=== PATIENT | male | born 1960 | race Caucasian/White ===

== ENCOUNTER 2023-05-06 16:05 | Inpatient (IN) | payer MEDICARE, OTHER ==
[~2023-05-06] VITALS: Ht 188 cm; Wt 104.8 kg
[2023-05-06] MEDS ORDERED: MAGN400O6 PO (17:02)
[2023-05-06] MEDS ORDERED: MAGN200T9 PO (17:02)
[2023-05-06] MEDS ORDERED: CLON0.5T4 PO (17:02)
[2023-05-06] MEDS ORDERED: SENN8.6T19 PO (17:02)
[2023-05-06] MEDS ORDERED: VITA1TAB37 PO (17:02)
[2023-05-06] MEDS ORDERED: IRBE150T28 PO (17:02)
[2023-05-06] MEDS ORDERED: METO50TA16 PO (17:02)
[2023-05-06] MEDS ORDERED: POLY250017 PO (17:02)
[2023-05-06] MEDS ORDERED: ACET325T53 PO (17:02)
[2023-05-06] MEDS ORDERED: NA P133E RC (17:02)
[2023-05-06] MEDS ORDERED: VALP250C3 PO (17:02)
[2023-05-06] MEDS ORDERED: ATOR10TA PO (17:02)
[2023-05-06] MEDS ORDERED: BISA10SU61 RC (17:02)
[2023-05-06] MEDS ORDERED: SERT100T PO (17:02)
[2023-05-06] MEDS ORDERED: CHOL2000 PO (17:02)
[2023-05-06] MEDS ORDERED: PANT20TA2 PO (17:02)
[2023-05-06] MEDS ORDERED: CETI10TA18 PO (17:02)
[2023-05-06 18:57] LABS: *BILIRUBIN,URIN NEGATIVE (NEGATIVE); *BLOOD, URINE NEGATIVE (NEGATIVE); *CLARITY,URINE SLIGHTLY CLOUDY (CLEAR); *COLOR,URINE YELLOW (YELLOW); *KETONES,URINE NEGATIVE (NEGATIVE); *PROTEIN,URINE NEGATIVE (NEGATIVE); NITRITE, URINE NEGATIVE (NEGATIVE); PH,URINE 7.5 (5.0-8.0); UGLUCOSE NEGATIVE (NEGATIVE)
[2023-05-06 19:09] LABS: *AMPHETAMINE, URINE NEGATIVE (NEGATIVE); *BARBITURATE, URINE NEGATIVE (NEGATIVE); *BENZODIAZEPINE, URINE NEGATIVE (NEGATIVE); *CANNABINOID, URINE NEGATIVE (NEGATIVE); *COCCAINE, URINE NEGATIVE (NEGATIVE); *OPIATE, URINE NEGATIVE (NEGATIVE); *PHENCYCLIDINE SCREEN,URINE NEGATIVE (NEGATIVE); FENTANYL, URINE NEGATIVE (NEGATIVE)
[2023-05-06 19:14] LABS: BASOPHILS # (AUTO) 0.1 K/UL (0.0-0.2); BASOPHILS % (AUTO) 1.7 % (0.0-2.0); EOSINOPHILS # (AUTO) 0.6 K/uL (0.0-0.7); EOSINOPHILS % (AUTO) 9.3 % (0.0-7.0); HEMOGLOBIN 14.2 g/dL (12.5-16.3); LYMPHOCYTES # (AUTO) 1.2 K/uL (0.8-4.8); LYMPHOCYTES % (AUTO) 17.3 % (20.5-51.5); MEAN CORPUSCULAR HEMOGLOBIN 30.9 uug (23.8-33.4); MEAN CORPUSCULAR HGB CONC 34 g/dL (32.5-36.3); MEAN CORPUSCULAR VOLUME 91.4 fL (73.0-96.2); MONOCYTES # (AUTO) 0.7 K/uL (0.1-1.30); MONOCYTES % (AUTO) 10.1 % (0.0-11.0); NEUTROPHILS # (AUTO) 4.2 K/uL (1.8-8.9); NEUTROPHILS % (AUTO) 61.6 % (38.5-71.5); PLATELET COUNT (AUTO) 261 K/uL (152-348); RED CELL DISTRIBUTION WIDTH 14.2 % (12.1-16.2); WHITE BLOOD COUNT (AUTO) 6.8 K/uL (3.6-10.2)
[2023-05-06 19:15] LABS: LEUKOCYTE ESTERASE ,URINE NEGATIVE (NEGATIVE)
[2023-05-06 19:16] LABS: DIFFERENTIAL COMMENT 1
[2023-05-06 19:30] LABS: ACETAMINOPHEN < 2.0 ug/mL (10-30); ALANINE AMINOTRANSFERASE 15 U/L (16-63); ALBUMIN 3.5 g/dL (3.4-5.0); ALKALINE PHOSPHATASE 56 U/L (50-136); ASPARTATE AMINOTRANSFERASE 11 U/L (15-37); BILIRUBIN,DIRECT 0.1 mg/dL (0.0-0.2); BILIRUBIN,TOTAL 0.6 mg/dL (0.2-1.0); CALCIUM 8.9 mg/dL (8.5-10.1); CARBON DIOXIDE 30 mmol/L (21-32); CHLORIDE 104 mmol/L (98-107); ETHANOL < 3 MG/DL (0-10); GLUCOSE 112 mg/dL (74-106); POTASSIUM 4.2 mmol/L (3.5-5.1); SODIUM SERUM 139 mmol/L (136-145); TOTAL PROTEIN, SERUM 7.8 g/dL (6.4-8.2); UREA NITROGEN, BLOOD 19 mg/dL (7-18)
[2023-05-06] MEDS ORDERED: MAGNESIUM HYDROXIDE 30 ML LIQUID UDC PO PRN (21:45)
[2023-05-06] MEDS ORDERED: ACETAMINOPHEN 325 MG TABLET PO PRN (21:45)
[2023-05-06] MEDS: BLOOD SUGAR DIAGNOSTIC 1 EACH STRIP VI ONE (21:45)
[2023-05-06] MEDS ORDERED: HALOPERIDOL LACTATE 5 MG/1 ML VIAL ONE (21:58)
[2023-05-06] MEDS: HALOPERIDOL LACTATE 5 MG/1 ML VIAL IM ONE (22:09)
[2023-05-07 08:45] VITALS: BP 105/59; TEMP 97.6; O2SAT 95
[2023-05-07] MEDS: DIVALPROEX 250 MG TABLET.DR PO SCH (13:00)
[2023-05-07] MEDS ORDERED: ACETAMINOPHEN 325 MG TABLET-SA PATIENTS-PAIN ONLY PO PRN (14:30)
[2023-05-07] MEDS ORDERED: MAGNESIUM HYDROXIDE 30 ML LIQUID UDC PO PRN (14:30)
[2023-05-07 15:53] VITALS: BP 125/81; TEMP 98; O2SAT 97
[2023-05-07 20:22] VITALS: BP 118/68; TEMP 98.1; O2SAT 97
[2023-05-07] MEDS: MIRALAX 17 GM POWD.PACK PO SCH (20:38)
[2023-05-07] MEDS: METOPROLOL TARTRATE 50 MG TABLET PO SCH (20:38)
[2023-05-07] MEDS: SENNOSIDES 1 TABLET PO SCH (20:38)
[2023-05-07] MEDS: ATORVASTATIN 10 MG TABLET PO SCH (20:38)
[2023-05-08] MEDS: PANTOPRAZOLE SODIUM 40 MG TABLET.DR PO SCH (07:25)
[2023-05-08] MEDS: CETIRIZINE HCL 10 MG TABLET PO SCH (08:36)
[2023-05-08] MEDS: CHOLECALCIFEROL 1,000 UNIT TABLET PO SCH (08:36)
[2023-05-08] MEDS: VITAMIN B COMPLEX 1 TABLET PO SCH (08:36)
[2023-05-08] MEDS: MAGNESIUM OXIDE 400 MG TABLET PO SCH (08:36)
[2023-05-08] MEDS: LOSARTAN POTASSIUM 50 MG TABLET PO SCH (08:42)
[2023-05-08] MEDS ORDERED: Medication Not On Formulary EA (Irbesartan (Avapro) 1 TAB) PO SCH (09:00)
[2023-05-08] MEDS ORDERED: VITAMIN B COMP W C PO SCH (09:00)
[2023-05-08] MEDS ORDERED: BISACODYL 10 MG SUPP.RECT RC PRN (09:00)
[2023-05-08] MEDS ORDERED: Medication Not On Formulary EA (Polyethylene Glycol 3350 17 GM) PO SCH (09:00)
[2023-05-08] MEDS ORDERED: MAGNESIUM OXIDE PO SCH (09:00)
[2023-05-08] MEDS ORDERED: FLEET ENEMA 133 ML BOTTLE RC PRN (09:00)
[2023-05-08] MEDS ORDERED: Medication Not On Formulary EA (Cholecalciferol (Vitamin D3) (Vitamin D3) 1 CAP) PO SCH (09:00)
[2023-05-08] MEDS ORDERED: PANTOPRAZOLE SODIUM PO SCH (09:00)
[2023-05-08 15:17] VITALS: BP 105/70; TEMP 97.6; O2SAT 96
[2023-05-08 20:00] VITALS: BP 103/61; TEMP 98; O2SAT 95
[2023-05-09 08:30] VITALS: BP 115/62; TEMP 97.4; O2SAT 95
[2023-05-09 15:35] VITALS: BP 121/68; TEMP 98.2; O2SAT 96
[2023-05-09] MEDS: LORAZEPAM 1 MG TABLET PO PRN (17:34)
[2023-05-09 20:00] VITALS: BP 132/62; TEMP 98.8; O2SAT 96
[2023-05-09] MEDS: ZOLPIDEM 5 MG TABLET PO PRN (20:57)
[2023-05-10 08:01] VITALS: BP 119/75; TEMP 98; O2SAT 99
[2023-05-10 15:41] VITALS: BP 107/70; TEMP 98; O2SAT 94
[2023-05-10 18:55] VITALS: O2SAT 96
[2023-05-10 19:35] LABS: *BILIRUBIN,URIN NEGATIVE (NEGATIVE); *CLARITY,URINE CLEAR (CLEAR); *COLOR,URINE YELLOW (YELLOW); *KETONES,URINE TRACE (NEGATIVE); *PROTEIN,URINE NEGATIVE (NEGATIVE); *UROBILINOGEN,URINE 0.2 E.U./dl (NORMAL); LEUKOCYTE ESTERASE ,URINE TRACE (NEGATIVE); NITRITE, URINE NEGATIVE (NEGATIVE); UGLUCOSE NEGATIVE (NEGATIVE)
[2023-05-10 19:42] LABS: *BLOOD, URINE TRACE (NEGATIVE)
[2023-05-10 20:00] VITALS: BP 107/62; TEMP 97.6; O2SAT 93
[2023-05-10 20:03] LABS: BACTERIA,URINE MODERATE /HPF (NONE SEEN); WBC,URINE 50-80 /HPF (0-3)
[2023-05-11 08:09] VITALS: BP 139/81; TEMP 98.1; O2SAT 96
[2023-05-11] MEDS: MAG HYDROX/AL HYDROX/SIMETH 30 ML LIQUID UDC PO PRN (13:01)
[2023-05-11] MEDS: CEphaleXIN 500 MG CAPSULE PO SCH ×2 (13:01→21:21)
[2023-05-11 16:05] VITALS: BP 98/54; TEMP 98.2; O2SAT 97
[2023-05-11 20:32] VITALS: BP 146/89; TEMP 98; O2SAT 96
[2023-05-11] MEDS: TEMAZEPAM 15 MG CAPSULE PO PRN (21:37)
[2023-05-12 08:15] VITALS: BP 120/86; TEMP 98.1; O2SAT 99
[2023-05-12 16:06] VITALS: BP 108/56; TEMP 98; O2SAT 98
[2023-05-12 19:49] VITALS: BP 118/66; TEMP 98.1; O2SAT 96
[2023-05-13 07:51] VITALS: BP 107/64; TEMP 98; O2SAT 98
[2023-05-13] MEDS: DIVALPROEX 125 MG TABLET.DR PO SCH (12:26)
[2023-05-13] MEDS ORDERED: DIVALPROEX 250 MG TABLET.DR PO SCH (13:00)
[2023-05-13 16:16] VITALS: BP 130/77; TEMP 98; O2SAT 97
[2023-05-13 19:57] VITALS: BP 118/62; TEMP 97.8; O2SAT 96
[2023-05-14 09:46] VITALS: BP 101/53; TEMP 97.6; O2SAT 69
[2023-05-14] MEDS: DIVALPROEX 500 MG TABLET.DR PO SCH (12:42)
[2023-05-14] MEDS ORDERED: DIVALPROEX 125 MG TABLET.DR PO SCH (13:00)
[2023-05-14 15:14] VITALS: BP 119/61; TEMP 97.6; O2SAT 96
[2023-05-14 20:09] VITALS: BP 111/60; TEMP 97.8; O2SAT 96
[2023-05-15 07:57] VITALS: BP 136/76; TEMP 98; O2SAT 96
[2023-05-15 15:19] VITALS: BP 111/79; TEMP 98.2; O2SAT 97
[2023-05-15] MEDS: CEphaleXIN 500 MG CAPSULE PO SCH (20:52)
[2023-05-16 08:05] VITALS: BP 119/68; TEMP 97.8; O2SAT 97
[2023-05-16 16:30] VITALS: BP 99/62; TEMP 97.8; O2SAT 97
[2023-05-16 20:00] VITALS: BP 108/70
[2023-05-17 08:07] VITALS: BP 113/89; TEMP 98; O2SAT 96
[2023-05-17 11:04] VITALS: BP 113/89
== END 2023-05-17 15:06 | DRG 885 ==
LOC: ER 16:13 → GPS 21:35
PROVIDERS: ADMIT Psychiatry & Neurology Psychosomatic Medicine; ATTEND Student in an Organized Health Care Education/Training Program
DX: F39 Unspecified mood [affective] disorder (principal); I69.354 Hemiplegia and hemiparesis following cerebral infarction affecting left non-dominant side; N39.0 Urinary tract infection, site not specified; Z78.1 Physical restraint status; F31.9 Bipolar disorder, unspecified; R41.9 Unspecified symptoms and signs involving cognitive functions and awareness; N40.0 Benign prostatic hyperplasia without lower urinary tract symptoms; K21.9 Gastro-esophageal reflux disease without esophagitis; Z87.820 Personal history of traumatic brain injury; Z79.899 Other long term (current) drug therapy; E78.5 Hyperlipidemia, unspecified; I10 Essential (primary) hypertension; F41.9 Anxiety disorder, unspecified
CPT/HCPCS: 36415; 80164; 84443; 85025; 93005; G0480; J1630; J3490

== ENCOUNTER 2024-07-09 18:21 | Inpatient (IN) | payer MEDICARE, OTHER ==
[~2024-07-09] VITALS: Ht 190.5 cm; Wt 93.0 kg
[~2024-07-09 18:21] MED LIST: ACET325T53 PO; ATOR10TA PO; BISA10SU61 RC; CETI10TA18 PO; CHOL2000 PO; IRBE150T28 PO; MAGN200T9 PO; MAGN400O6 PO; METO50TA16 PO; NA P133E RC; PANT20TA2 PO; POLY250017 PO; SENN8.6T19 PO; VITA1TAB37 PO
[2024-07-09] MEDS ORDERED: MAGN400C PO (20:09)
[2024-07-09] MEDS ORDERED: DIVA125T2 PO (20:09)
[2024-07-09] MEDS ORDERED: BISA-79 PO (20:09)
[2024-07-09] MEDS ORDERED: ALBU2.5V38 NEB (20:09)
[2024-07-09] MEDS ORDERED: MAGN400O6 PO (20:09)
[2024-07-09] MEDS ORDERED: LOSA1TAB36 PO (20:09)
[2024-07-09 20:28] LABS: BASOPHILS # (AUTO) 0.1 K/UL (0.0-0.2); BASOPHILS % (AUTO) 0.9 % (0.0-2.0); EOSINOPHILS % (AUTO) 0.3 % (0.0-7.0); HEMATOCRIT 44.3 % (36.7-47.1); HEMOGLOBIN 15.2 g/dL (12.5-16.3); LYMPHOCYTES # (AUTO) 1.5 K/uL (0.8-4.8); LYMPHOCYTES % (AUTO) 15.5 % (20.5-51.5); MEAN CORPUSCULAR HEMOGLOBIN 31.2 uug (23.8-33.4); MEAN CORPUSCULAR HGB CONC 34 g/dL (32.5-36.3); MEAN CORPUSCULAR VOLUME 91.1 fL (73.0-96.2); MONOCYTES # (AUTO) 0.8 K/uL (0.1-1.30); MONOCYTES % (AUTO) 7.7 % (0.0-11.0); NEUTROPHILS # (AUTO) 7.4 K/uL (1.8-8.9); NEUTROPHILS % (AUTO) 75.6 % (38.5-71.5); PLATELET COUNT (AUTO) 236 K/uL (152-348); RED BLOOD CELL COUNT(AUTO) 4.87 MIL/uL (4.06-5.63); RED CELL DISTRIBUTION WIDTH 13.5 % (12.1-16.2); WHITE BLOOD COUNT (AUTO) 9.8 K/uL (3.6-10.2)
[2024-07-09 20:33] LABS: DIFFERENTIAL COMMENT 1
[2024-07-09 20:37] LABS: CALCIUM 9.2 mg/dL (8.5-10.1); CARBON DIOXIDE 26 mmol/L (21-32); CHLORIDE 103 mmol/L (98-107); GLUCOSE 137 mg/dL (74-106); POTASSIUM 3.9 mmol/L (3.5-5.1); SODIUM SERUM 140 mmol/L (136-145); UREA NITROGEN, BLOOD 17 mg/dL (7-18)
[2024-07-09 20:38] LABS: AMMONIA 13 umol/L (11-32)
[2024-07-09 20:42] LABS: ALANINE AMINOTRANSFERASE 13 U/L (16-63); ALBUMIN 3.3 g/dL (3.4-5.0); ALKALINE PHOSPHATASE 60 U/L (50-136); ASPARTATE AMINOTRANSFERASE 18 U/L (15-37); BILIRUBIN,DIRECT 0.2 mg/dL (0.0-0.2); BILIRUBIN,TOTAL 0.9 mg/dL (0.2-1.0); TOTAL PROTEIN, SERUM 7.4 g/dL (6.4-8.2)
[2024-07-09 20:44] LABS: ACETAMINOPHEN < 2.0 ug/mL (10-30)
[2024-07-09 20:53] LABS: ETHANOL < 3 MG/DL (0-10)
[2024-07-09 20:54] LABS: THYROID STIMULATING HORMONE 1.227 mIU/mL (0.358-3.740)
[2024-07-09 20:56] LABS: *BILIRUBIN,URIN NEGATIVE (NEGATIVE); *CLARITY,URINE CLEAR (CLEAR); *COLOR,URINE YELLOW (YELLOW); *KETONES,URINE 1+ (NEGATIVE); *PROTEIN,URINE 1+ (NEGATIVE); LEUKOCYTE ESTERASE ,URINE TRACE (NEGATIVE); NITRITE, URINE NEGATIVE (NEGATIVE); UGLUCOSE NEGATIVE (NEGATIVE)
[2024-07-09 21:02] LABS: *BLOOD, URINE TRACE (NEGATIVE)
[2024-07-09 21:08] LABS: *AMPHETAMINE, URINE NEGATIVE (NEGATIVE); *BARBITURATE, URINE NEGATIVE (NEGATIVE); *BENZODIAZEPINE, URINE NEGATIVE (NEGATIVE); *CANNABINOID, URINE NEGATIVE (NEGATIVE); *COCCAINE, URINE NEGATIVE (NEGATIVE); *OPIATE, URINE NEGATIVE (NEGATIVE); *PHENCYCLIDINE SCREEN,URINE NEGATIVE (NEGATIVE); FENTANYL, URINE NEGATIVE (NEGATIVE)
[2024-07-09 21:10] LABS: BACTERIA,URINE MODERATE /HPF (NONE SEEN); SQUAMOUS EPITHELIAL CELL,UR FEW /HPF (NONE SEEN)
[2024-07-10] MEDS ORDERED: MAGNESIUM HYDROXIDE 30 ML LIQUID UDC PO PRN (02:15)
[2024-07-10] MEDS ORDERED: ACETAMINOPHEN 325 MG TABLET PO PRN (02:30)
[2024-07-10] MEDS: BLOOD SUGAR DIAGNOSTIC 1 EACH STRIP VI ONE (03:57)
[2024-07-10] MEDS ORDERED: ZOLPIDEM 5 MG TABLET PO PRN (04:00)
[2024-07-10] MEDS ORDERED: QUETIAPINE FUMARATE 25 MG TABLET PO PRN (04:00)
[2024-07-10] MEDS ORDERED: MAG HYDROX/AL HYDROX/SIMETH 30 ML LIQUID UDC PO PRN (04:00)
[2024-07-10 08:00] VITALS: BP 119/64; TEMP 98.2; O2SAT 100
[2024-07-10] MEDS ORDERED: DIVA-76 PO (08:39)
[2024-07-10] MEDS ORDERED: DIVA125T32 PO (08:39)
[2024-07-10] MEDS ORDERED: MAG355OR18 PO (08:48)
[2024-07-10] MEDS ORDERED: POLY119P2 PO (08:55)
[2024-07-10] MEDS ORDERED: Medication Not On Formulary EA (Losartan/Hydrochlorothiazide (Losartan-Hctz 50-12.5 Mg T PO SCH (09:00)
[2024-07-10] MEDS: LOSARTAN POTASSIUM 50 MG TABLET PO SCH ×2 (09:00→09:13)
[2024-07-10] MEDS: PANTOPRAZOLE SODIUM 40 MG TABLET.DR PO SCH (09:13)
[2024-07-10] MEDS: CHOLECALCIFEROL 1,000 UNIT TABLET PO SCH (09:13)
[2024-07-10] MEDS: MAGNESIUM OXIDE 400 MG TABLET PO SCH (09:13)
[2024-07-10] MEDS: METOPROLOL TARTRATE 50 MG TABLET PO SCH (09:14)
[2024-07-10] MEDS: HYDROCHLOROTHIAZIDE 12.5 MG CAPSULE PO SCH (09:17)
[2024-07-10] MEDS: VITAMIN B COMPLEX 1 TABLET PO SCH (09:17)
[2024-07-10] MEDS ORDERED: POLYETHYLENE GLYCOL 3350 238 GM POWDER PO SCH (10:15)
[2024-07-10] MEDS: MIRALAX 17 GM POWD.PACK PO SCH (11:05)
[2024-07-10] MEDS ORDERED: DIVALPROEX 125 MG TABLET.DR PO SCH (14:00)
[2024-07-10 16:03] VITALS: BP 126/72; TEMP 98; O2SAT 96
[2024-07-10] MEDS: ATORVASTATIN 10 MG TABLET PO SCH (17:11)
[2024-07-10 19:57] VITALS: BP 131/67; TEMP 98.2; O2SAT 97
[2024-07-10] MEDS: SENNOSIDES 1 TABLET PO SCH (20:18)
[2024-07-10] MEDS: risperiDONE 0.25 MG TABLET PO SCH (20:18)
[2024-07-10] MEDS: DIVALPROEX 125 MG TABLET.DR PO SCH (20:18)
[2024-07-10] MEDS ORDERED: MIRALAX 17 GM POWD.PACK PO SCH (21:00)
[2024-07-11 08:17] VITALS: BP 98/55; TEMP 98; O2SAT 98
[2024-07-11] MEDS: CEphaleXIN 500 MG CAPSULE PO SCH (11:19)
[2024-07-11 12:44] LABS: BASOPHILS # (AUTO) 0.1 K/UL (0.0-0.2); BASOPHILS % (AUTO) 0.8 % (0.0-2.0); EOSINOPHILS # (AUTO) 0.2 K/uL (0.0-0.7); EOSINOPHILS % (AUTO) 2.4 % (0.0-7.0); HEMATOCRIT 44.1 % (36.7-47.1); HEMOGLOBIN 15.1 g/dL (12.5-16.3); LYMPHOCYTES # (AUTO) 2.9 K/uL (0.8-4.8); LYMPHOCYTES % (AUTO) 33.7 % (20.5-51.5); MEAN CORPUSCULAR HEMOGLOBIN 31.2 uug (23.8-33.4); MEAN CORPUSCULAR HGB CONC 34 g/dL (32.5-36.3); MEAN CORPUSCULAR VOLUME 91.2 fL (73.0-96.2); MONOCYTES # (AUTO) 1.2 K/uL (0.1-1.30); NEUTROPHILS # (AUTO) 4.1 K/uL (1.8-8.9); NEUTROPHILS % (AUTO) 49.1 % (38.5-71.5); PLATELET COUNT (AUTO) 224 K/uL (152-348); RED BLOOD CELL COUNT(AUTO) 4.83 MIL/uL (4.06-5.63); RED CELL DISTRIBUTION WIDTH 13.4 % (12.1-16.2); WHITE BLOOD COUNT (AUTO) 8.4 K/uL (3.6-10.2)
[2024-07-11 12:46] LABS: CALCIUM 8.6 mg/dL (8.5-10.1); CREATININE 0.9 mg/dL (0.6-1.3); POTASSIUM 3.9 mmol/L (3.5-5.1)
[2024-07-11 15:43] VITALS: BP 95/55; TEMP 98; O2SAT 98
[2024-07-11 21:09] VITALS: BP 103/55; TEMP 98.4; O2SAT 93
[2024-07-12 08:34] VITALS: BP 104/51; TEMP 97.9; O2SAT 96
[2024-07-12] MEDS: risperiDONE 0.25 MG TABLET PO SCH (08:39)
[2024-07-12 16:48] VITALS: BP 112/71; TEMP 98; O2SAT 99
[2024-07-12 21:31] VITALS: BP 102/53; TEMP 97.8; O2SAT 93
[2024-07-13 08:22] VITALS: BP 118/56; TEMP 98.1; O2SAT 97
[2024-07-13 16:24] VITALS: BP 99/52; TEMP 97.8; O2SAT 98
[2024-07-13 19:53] VITALS: BP 114/55; TEMP 97.9; O2SAT 97
[2024-07-13] MEDS: risperiDONE 0.5 MG TABLET PO SCH (20:10)
[2024-07-13] MEDS ORDERED: risperiDONE 0.25 MG TABLET PO SCH (21:00)
[2024-07-14 08:20] VITALS: BP 105/65; TEMP 98.5; O2SAT 100
[2024-07-14] MEDS: risperiDONE 0.5 MG TABLET PO SCH (08:47)
[2024-07-14] MEDS ORDERED: risperiDONE 0.25 MG TABLET PO SCH (09:00)
[2024-07-14] MEDS: DIVALPROEX 250 MG TABLET.DR PO SCH (13:52)
[2024-07-14] MEDS ORDERED: DIVALPROEX 125 MG TABLET.DR PO SCH (14:00)
[2024-07-14 16:36] VITALS: BP 120/71; TEMP 98.1; O2SAT 97
[2024-07-14 19:47] VITALS: BP 94/56; TEMP 97.4; O2SAT 93
[2024-07-15 08:04] VITALS: BP 116/52; TEMP 98; O2SAT 94
[2024-07-15 16:27] VITALS: BP 100/54; TEMP 98; O2SAT 94
[2024-07-15 20:00] VITALS: BP 115/60; TEMP 98.2; O2SAT 95
[2024-07-16 08:09] VITALS: BP 113/67; TEMP 98.4; O2SAT 96
[2024-07-16 15:30] VITALS: BP 100/49; TEMP 98; O2SAT 99
[2024-07-16 20:00] VITALS: BP 103/52; TEMP 98.4; O2SAT 95
[2024-07-17 09:19] VITALS: BP 116/65; TEMP 97.9; O2SAT 96
[2024-07-17] MEDS: DIVALPROEX 125 MG TABLET.DR PO SCH (14:20)
[2024-07-17] MEDS: DIVALPROEX 250 MG TABLET.DR PO SCH (14:20)
[2024-07-17 17:49] VITALS: BP 120/68; TEMP 98.4; O2SAT 100
[2024-07-17 20:01] VITALS: BP 123/80; TEMP 98.7
[2024-07-18 11:03] VITALS: BP 100/58; TEMP 98; O2SAT 96
[2024-07-18 15:33] VITALS: BP 114/57; TEMP 98; O2SAT 96
[2024-07-18 19:49] VITALS: BP 116/67; TEMP 97.8; O2SAT 97
[2024-07-19 08:25] VITALS: BP 110/63; TEMP 98; O2SAT 96
[2024-07-19 15:05] VITALS: BP 131/97; TEMP 98; O2SAT 98
[2024-07-19 20:16] VITALS: BP 123/69; TEMP 98.6; O2SAT 97
[2024-07-20 08:18] VITALS: TEMP 97.7
[2024-07-20 08:27] VITALS: BP 96/40
== END 2024-07-20 11:30 | DRG 885 ==
LOC: ER 18:29 → GPS 23:45
PROVIDERS: ADMIT Psychiatry & Neurology Psychiatry; ATTEND Nurse Practitioner Acute Care
DX: F31.9 Bipolar disorder, unspecified (principal); G81.94 Hemiplegia, unspecified affecting left nondominant side; D68.59 Other primary thrombophilia; E44.1 Mild protein-calorie malnutrition; N39.0 Urinary tract infection, site not specified; N40.0 Benign prostatic hyperplasia without lower urinary tract symptoms; S06.9XAS Unspecified intracranial injury with loss of consciousness status unknown, sequela; R40.2412 Glasgow coma scale score 13-15, at arrival to emergency department; X58.XXXS Exposure to other specified factors, sequela; E66.9 Obesity, unspecified; E88.09 Other disorders of plasma-protein metabolism, not elsewhere classified; K21.9 Gastro-esophageal reflux disease without esophagitis; I10 Essential (primary) hypertension; Z79.899 Other long term (current) drug therapy; F41.9 Anxiety disorder, unspecified
CPT/HCPCS: 36415; 70450; 71045; 80164; 84443; 84484; 85025; 85730; 87077; 87086; G0480; J3490